=== PATIENT | male | born 1985 ===

== ENCOUNTER 2017-08-25 12:31 | Emergency (ER) | payer OTHER ==
[2017-08-25 14:53] VITALS: BP 123/73; PULSE 62; RESP 20; TEMP 98; O2SAT 98
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
== END 2017-08-25 15:46 | disposition home or self-care (01) ==
LOC: C.ER 12:31
DX: S16.1XXA Strain of muscle, fascia and tendon at neck level, initial encounter (principal); S39.012A Strain of muscle, fascia and tendon of lower back, initial encounter; S80.01XA Contusion of right knee, initial encounter; S43.402A Unspecified sprain of left shoulder joint, initial encounter; V49.9XXA Car occupant (driver) (passenger) injured in unspecified traffic accident, initial encounter